=== PATIENT | female | born 1995 | race Caucasian/White ===

== ENCOUNTER 2023-03-30 07:57 | Inpatient (IN) ==
[2023-03-30] MEDS ORDERED: Terbutaline INJ 1 MG/ML 1 ml VIAL SUBCUT PRN (08:45)
[2023-03-30] MEDS ORDERED: Buffered Lidocaine 1% SYRIN 1 ml INTRADERM ONE (08:45)
[2023-03-30] MEDS ORDERED: Lactated Ringers 1000 ml BAG 1,000 ML IV ONE ×2 (08:45→20:21)
[2023-03-30] MEDS ORDERED: Promethazine INJ(RESTRICTED) 25 MG/ML 1 ml VIAL IV PRN (08:45)
[2023-03-30] MEDS ORDERED: Lactated Ringers 1000 ml BAG 1,000 ML IV SCH ×3 (09:00→21:00)
[2023-03-30] MEDS: miSOPROStol 100 mcg TAB PO SCH ×3 (09:07→16:42)
[2023-03-30 09:36] LABS: ABS Eosinophils 0.1 10^3/uL (0.0-0.5); ABS Lymphocytes 1.5 10^3/uL (1.0-4.8); ABS Monocytes 0.8 10^3/uL (0.0-0.9); ABS Neutrophils 5.9 10^3/uL (1.5-7.6); ABS Nucleated RBC 0.01 10^3/ul; Eosinophil % 0.9 %; Hematocrit 29.9 % (35-45); Hemoglobin 10.3 g/dL (11.5-14.3); Lymphocyte % 17.9 %; Mean Corpuscular Hemoglobin 28.6 pg (27-33); Mean Corpuscular Hgb Conc 34.4 g/dL (31-36); Mean Corpuscular Volume 83.2 fL (80-97); Mean Platelet Volume 8.8 fL (7.5-11.2); Nucleated Red Blood Cells % 0.1 /100 WBC (0.0-0.4); Platelet Count 266 10^3/uL (150-450); Red Cell Distribution Width 14.3 % (12-17); White Blood Count 8.3 10^3/uL (3.8-11.8)
[2023-03-30 09:36] LABS: Urine Benzodiazepine Screen None Detected (None Detect); Urine Opiates Screen None Detected (None Detect)
[2023-03-30 10:09] LABS: Albumin 3.5 g/dL (3.2-5.2); Albumin/Globulin Ratio 1.4 (1-3); Calcium 8.9 mg/dL (8.6-10.3); Creatinine, Serum 0.38 mg/dL (0.51-0.95); Globulin 2.5 g/dL (2-4); Potassium 3.7 mmol/L (3.5-5.0); Total Bilirubin 0.3 mg/dL (0.2-1.0); eGFR CKD-EPI 140.8 (>60)
[2023-03-30] MEDS ORDERED: OBEPIDURAL (200 ML) 200 ML EPIDURAL ONE (19:42)
[2023-03-30] MEDS ORDERED: Lidocaine 1.5% EPI 1:200,000 30 ML SDV ONE (19:42)
[2023-03-30] MEDS ORDERED: Lactated Ringers 1000 ml BAG 500 ML IV PRN ×2 (20:21)
[2023-03-30] MEDS ORDERED: Sodium Citrate/Citric Acid LIQ 15 ML UDC PO PRN (20:21)
[2023-03-30] MEDS ORDERED: Phenylephrine 40 mcg/mL 10mL (400mcg) SYRINGE IV PUSH PRN ×2 (20:21)
[2023-03-30] MEDS ORDERED: OBEPIDURAL (200 ML) 200 ML EPIDURAL SCH (21:00)
[2023-03-31] MEDS ORDERED: Lidocaine 2% PF 10 ML AMP (OR) ONE (00:13)
[2023-03-31] MEDS ORDERED: Dibucaine 1% OINT 28.35 GM TUBE PR PRN (02:05)
[2023-03-31] MEDS ORDERED: Witch Hazel PAD JAR TOPICAL PRN (02:05)
[2023-03-31] MEDS ORDERED: Lactated Ringers 1000 ml BAG 1,000 ML IV SCH (03:00)
[2023-03-31] MEDS ORDERED: Measles, Mumps,Rubella VACC 0.5 ML/VIAL SUBCUT ONE (09:00)
[2023-04-01 06:52] LABS: ABS Eosinophils 0.2 10^3/uL (0.0-0.5); ABS Lymphocytes 2.4 10^3/uL (1.0-4.8); ABS Monocytes 0.9 10^3/uL (0.0-0.9); ABS Neutrophils 6.2 10^3/uL (1.5-7.6); Eosinophil % 1.7 %; Hematocrit 29.7 % (35-45); Lymphocyte % 24.6 %; Mean Corpuscular Hemoglobin 28.3 pg (27-33); Mean Corpuscular Hgb Conc 33.9 g/dL (31-36); Mean Corpuscular Volume 83.7 fL (80-97); Mean Platelet Volume 8.7 fL (7.5-11.2); Platelet Count 245 10^3/uL (150-450); Red Blood Count 3.54 10^6/uL (3.63-4.92); Red Cell Distribution Width 14.2 % (12-17); White Blood Count 9.6 10^3/uL (3.8-11.8)
[2023-04-01 08:35] VITALS: BP 104/64
== END 2023-04-01 11:23 | disposition home or self-care (01) | DRG 560 ==
LOC: MCHOBOUT 07:57 → MCHOB 08:27
PROVIDERS: ADMIT Registered Nurse; ATTEND Registered Nurse